=== PATIENT | male | born 1985 | race Caucasian/White ===

== ENCOUNTER 2018-01-29 09:25 | Emergency (ER) | payer BC, OTHER ==
--- NOTE | 2018-01-29 10:15 | ED ---
Lower Extremity - HPI Summary HPI Summary: Patient here with left hip pain today 20 minutes. He noticed this pain started after he was sitting in a vehicle and stood up to get out of the vehicle. He describes pain as sharp and burning. The area over his left greater trochanter was tender to palpation during the episode and still is to a lesser degree. 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 No known fractures or disc issues. He admits his symptoms in his left hip started a few months ago in a similar fashion (pain with standing after sitting for a period of time). He is here today is pain was much more impressive and lasting longer than usual. He has not tried anything for pain prior to arrival - reports no pain at this time and does not want NSAID's, etc. No known h/o hip/leg injury. - History of Current Complaint Chief Complaint: EDHipPelvisInjury Stated Complaint: LT HIP PAIN Time Seen by Provider: 01/29/18 09:42 Hx Obtained From: Patient Pain Intensity: 1 - Allergies/Home Medications Allergies/Adverse Reactions: Allergies Allergy/AdvReac Type Severity Reaction Status Date / Time amoxicillin Allergy Severe Hives Verified 01/29/18 09:31 cephalexin [From Keflex] Allergy Severe Hives Verified 01/29/18 09:31 Penicillins Allergy Severe Hives Verified 01/29/18 09:31 PMH/Surg Hx/FS Hx/Imm Hx Previously Healthy: Yes Endocrine/Hematology History: Denies: Hx Anticoagulant Therapy, Hx Blood Disorders Musculoskeletal History: Reports: Hx Back Problems - "back problems from martial arts over the years" no def injury noted Denies: Hx Arthritis, Hx Bursitis, Hx Orthopedic Injury, Hx Osteoporosis, Hx Tendonitis, Hx of Fracture(s), Hx Joint Replacement Infectious Disease History: No Infectious Disease History: Denies: Traveled Outside the [place] in Last 30 Days - Family History Known Family History: Negative: Diabetes - Social History 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 Alcohol Use: None - 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 Substance Use Type: Reports: Excessive Caffeine - "I drink alot of Red Bull" Hx Tobacco Use: Yes - chewing tobacco - quit 2 years ago Smoking Status (MU): Never Smoked Tobacco Type: Smokeless Tobacco - quit 2 years ago - uses nicorette since Review of Systems Constitutional: Negative Negative: Fever, Chills, Fatigue Eyes: Negative ENT: Negative Cardiovascular: Negative Negative: Chest Pain Respiratory: Negative Negative: Shortness Of Breath, Cough Gastrointestinal: Negative Negative: Abdominal Pain, Vomiting, Diarrhea, Nausea Genitourinary: Negative Negative: burning, dysuria, discharge, frequency, flank pain, hematuria, incontinence, pain, urgency Positive: Arthralgia, Myalgia. Negative: Decreased ROM, Edema Skin: Negative Neurological: Negative Negative: Headache, Weakness, Paresthesia, Numbness Psychological: Normal All Other Systems Reviewed And Are Negative: Yes Physical Exam Triage Information Reviewed: Yes Vital Signs On Initial Exam: Initial Vitals Temp Pulse Resp BP Pulse Ox 97.2 F 68 14 119/60 100 01/29/18 09:26 01/29/18 09:26 01/29/18 09:26 01/29/18 09:26 01/29/18 09:26 Vital Signs Reviewed: Yes Appearance: Positive: Well-Appearing, No Pain Distress, Well-Nourished Skin: Positive: Warm, Skin Color Reflects Adequate Perfusion, Dry - No erythema , no ecchymosis, no lesions over affected area and left hip and lower extremity area Head/Face: Positive: Normal Head/Face Inspection Eyes: Positive: Normal, EOMI ENT: Positive: Hearing grossly normal, Pharynx normal - Mucosa moist Neck: Positive: Supple Respiratory/Lung Sounds: Positive: Clear to Auscultation, Breath Sounds Present Cardiovascular: Positive: Normal, RRR, Pulses are Symmetrical in both Upper and Lower Extremities. Negative: Leg Edema Left, Leg Edema Right Abdomen Description: Positive: No Organomegaly, Guarding - Reports his abdomen is sore from a recent appendectomy workoutno new pain, soreness or tenderness Bowel Sounds: Positive: Present Musculoskeletal: Positive: Strength/ROM Intact, Pain @ - Patient has pain with left hip Abduction lying and external rotation of left hip; tender to palpation over left posterior aspect of left femur within the gluteal and hamstring tissue. Negative: Limited @ Neurological: Positive: Normal, Sensory/Motor Intact, Alert, Oriented to Person Place, Time, CN Intact II-III, Reflexes Intact, Other - No saddle paresthesia Psychiatric: Positive: Normal - Concerned but calm, pleasant and cooperative Diagnostics - Vital Signs Vital Signs Temp Pulse Resp BP Pulse Ox 01/29/18 09:26 97.2 F 68 14 119/60 100 - Laboratory Lab Statement: Any lab studies that have been ordered have been reviewed, and results considered in the medical decision making process. Lower Extremity Course/Dx - Course Course Of Treatment: Lumbar and left hip/pelvis x-rays reviewedper report no acute findings. Some mild degenerative disc disease is identified in the thoracic spinethis does not correlate with patient's symptoms today. Diagnosed with sciatic irritation and advised on supportive care. Advised to follow-up with PCP and return to emergency department if danger signs or symptoms present. - Diagnoses Provider Diagnoses: Sciatica of left side Discharge - Discharge Plan Condition: Stable Disposition: HOME Patient Education Materials: Sciatica (ED) Forms: *Work Release Referrals: No Primary Care Phys,NOPCP [Primary Care Provider] - [facility] [Outside] Additional Instructions: Rest, ice alternating with heat and gentle stretches. He may also try anti-inflammatory oral medication such as ibuprofen, Aleve with food and/or analgesic agents such as Biofreeze, BenGay, etc. Stay hydrated and reduce/avoid diuretics such as caffeine Follow-up with PCP in one week if symptoms persist despite efforts *If you develop return of intractable pain, numbness, tingling, weakness, change in bowel or bladder habits, return to the emergency department
--- NOTE | 2018-01-29 10:35 | RAD ---
HISTORY: Left hip pain COMPARISONS: September 08, 2015 VIEWS: 3, Frontal view of the pelvis with frontal and frog-leg views of the left hip FINDINGS: BONE DENSITY: Normal. BONES: There is no displaced fracture. JOINTS: There is no arthropathy. ALIGNMENT: There is no dislocation. SOFT TISSUES: Unremarkable. OTHER FINDINGS: None. IMPRESSION: NO ACUTE OSSEOUS INJURY. IF SYMPTOMS PERSIST, RECOMMEND REPEAT IMAGING.
--- NOTE | 2018-01-29 10:36 | RAD ---
HISTORY: Left hip pain radiating into hamstring COMPARISONS: None VIEWS: 3 , Frontal, lateral, and coned-down lateral sacral views of the lumbar spine FINDINGS: ALIGNMENT: The alignment is normal. VERTEBRAL BODIES: The vertebral body heights are normal. The interpedicular distances are normal. There is mild anterolateral marginal osteophyte dimension along the lower thoracic spine. JOINTS: The facet joints are normal. INTERVERTEBRAL DISCS: There is mild diffuse loss of intervertebral disc height. SOFT TISSUE: Unremarkable. OTHER: The pelvis is unremarkable. The lung bases are clear. IMPRESSION: MILD DEGENERATIVE DISC DISEASE.
[2018-01-29 11:17] VITALS: BP 123/65
== END 2018-01-29 11:16 | disposition home or self-care (01) ==
LOC: ED 09:25
DX: M54.32 Sciatica, left side (principal); M25.552 Pain in left hip; M51.36 Other intervertebral disc degeneration, lumbar region
CPT/HCPCS: 72100; 99281

== ENCOUNTER 2018-02-24 08:43 | Emergency (ER) | payer BC ==
--- NOTE | 2018-02-24 10:30 | ED ---
Neck Pain - HPI Summary HPI Summary: Patient a 32-year-old male who presents to emergency department for left-sided neck pain 2 days. 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 He does not recall any specific injuries or falls that preceded pain. Pain does not radiate into arms. He denies numbness, tingling or weakness in arms. Pain is worse with movement. Rest mildly improves symptoms. Symptoms are mild in severity. He has no significant past medical history. - History of Current Complaint Chief Complaint: EDNeckComplaint Stated Complaint: NECK PAIN Time Seen by Provider: 02/24/18 08:51 Hx Obtained From: Patient Onset/Duration Of Injury/Symptoms: Days Timing: Constant Onset/Duration: Gradual Onset Severity Initially: Moderate Severity Currently: Severe Pain Intensity: 6 Pain Scale Used: 0-10 Numeric Character: Sharp, Spasmotic, Throbbing Aggravating Factors: Position, Movement Alleviating Factors: Nothing Associated Signs & Symptoms: Negative: Swelling, Redness, Bruising, Fever, Nuchal Rigity, Weakness, Headache, Paresthesia - Risk Factors Meningitis Risk Factors: Negative - Allergies/Home Medications Allergies/Adverse Reactions: Allergies Allergy/AdvReac Type Severity Reaction Status Date / Time amoxicillin Allergy Severe Hives Verified 01/29/18 09:31 cephalexin [From Keflex] Allergy Severe Hives Verified 01/29/18 09:31 Penicillins Allergy Severe Hives Verified 01/29/18 09:31 PMH/Surg Hx/FS Hx/Imm Hx Previously Healthy: Yes Endocrine/Hematology History: Denies: Hx Anticoagulant Therapy, Hx Blood Disorders Musculoskeletal History: Reports: Hx Back Problems - "back problems from martial arts over the years" no def injury noted Denies: Hx Arthritis, Hx Bursitis, Hx Orthopedic Injury, Hx Osteoporosis, Hx Tendonitis Infectious Disease History: No Infectious Disease History: Denies: Traveled Outside the [place] in Last 30 Days - Family History Known Family History: Negative: Diabetes - Social History Occupation: Employed Full-time Lives: With Family Alcohol Use: None Substance Use Type: Reports: Excessive Caffeine Hx Tobacco Use: Yes - chewing tobacco - quit 2 years ago Smoking Status (MU): Never Smoked Tobacco Type: Smokeless Tobacco - quit 2 years ago - uses nicorette since Review of Systems - ROS Summary Review of Systems Summary: Constitutional: No fever, chills. Head/Face: No trauma. Neck: Left sided neck pian MS: No radicular pain in arms Neuro: No change in mental status. No numbness, tingling or weakness. All other systems reviewed and are negative. All Other Systems Reviewed And Are Negative: Yes Physical Exam - Summary Physical Exam Summary: Appearance: Pt. is awake and alert. Pt. lying in bed in NAD. Skin: Warm, dry. Head/Face: No trauma. Normocephalic. Eyes: PERRLA. Neck: Pain with movement. No midline tenderness. Pain and spasming to the left lateral neck and trapezius muscle. ENT: Nose without drainage. Oropharynx patent. MS/Extremity: Moving all 4 extremities. 5/5 strength in bilateral UEs. No neurosensory deficits. Neuro: Awake, alert. Cranial nerves II through XII grossly intact. Pscyh: Normal affect. Triage Information Reviewed: Yes Vital Signs On Initial Exam: Initial Vitals Temp Pulse Resp BP Pulse Ox 97.1 F 56 16 116/67 100 02/24/18 08:45 02/24/18 08:45 02/24/18 08:45 02/24/18 08:45 02/24/18 08:45 Vital Signs Reviewed: Yes Appearance: Positive: Well-Appearing Skin: Positive: Warm, Dry Diagnostics - Vital Signs Vital Signs Temp Pulse Resp BP Pulse Ox 02/24/18 10:01 97.8 F 65 16 113/65 100 02/24/18 08:45 97.1 F 56 16 116/67 100 - Laboratory Result Diagrams: 02/24/18 12:00 02/24/18 12:00 Lab Statement: Any lab studies that have been ordered have been reviewed, and results considered in the medical decision making process. Neck Course/Dx - Course Course Of Treatment: Patient present to the ER for left-sided neck pain after training [facility] yesterday. He does not recall any specific injuries that proceeded pain. He is afebrile with stable vital signs. On exam he has no midline tenderness. His pain seems to be muscular in nature. He has no particular symptoms and has no neurosensory deficits. Suspect muscle spasm. Plan was discussed with patient for muscle relaxants and NSAIDs. Patient expressed to me that he has had numerous injuries in the past and his pain today is worse. He does not feel pain is secondary to musculoskeletal in etiology. Patient was examined by Dr. Priest as well who agrees pain is muscular in nature. Patient is still dissatisfied and wishes for further evaluation. He declined pain medication in the ER. Care is being turned over to Dr. Priest for further evaluation. He has ordered a CTA of the neck for further evaluation. - Diagnoses Provider Diagnoses: Cervical strain, Muscle spasm Discharge - Sign-Out/Discharge Documenting (check all that apply): Discharge - Discharge Plan Condition: Good Disposition: HOME Prescriptions: Cyclobenzaprine TAB* [Flexeril 10 MG TAB*] 10 mg PO TID PRN 3 Days #9 tab PRN Reason: Pain Naproxen TAB* [Naprosyn 250 mg TAB*] 500 mg PO BID 7 Days #14 tab Patient Education Materials: Muscle Spasm (ED), Acute Neck Pain (ED) Forms: *Work Release Referrals: No Primary Care Phys,NOPCP [Primary Care Provider] - Additional Instructions: Schedule a follow up appointment with your PCP Take medication as directed Apply warm compresses Gentle massage Return to ER if symptoms change or worsen - Billing Disposition and Condition Condition: GOOD Disposition: HOME
[2018-02-24] MEDS ORDERED: Ketorolac INJ* 30 MG/ML 1 ML VIAL IV PUSH ONE (11:51)
[2018-02-24] MEDS ORDERED: Lidocaine PATCH 5%* 1 PATCH ONE (11:56)
[2018-02-24] MEDS ORDERED: Lidocaine PATCH 5%* 1 PATCH TRANSDERM SCH (12:00)
[2018-02-24 12:13] LABS: Hematocrit 43 % (42-52); Hemoglobin 14.3 g/dl (14.0-18.0); Mean Corpuscular HGB Conc 33 g/dl (31-36); Mean Corpuscular Hemoglobin 29 pg (27-31); Mean Corpuscular Volume 88 fL (80-94); Mean Platelet Volume 7.6 um3 (7.4-10.4); Platelet Count 244 10^3/ul (150-450); Red Blood Count 4.85 10^6/ul (4.0-5.4); Red Cell Distribution Width 14 % (10.5-15); White Blood Count 4.4 10^3/ul (3.5-10.8)
[2018-02-24 12:30] LABS: EGFR Non-African American 92.5 (>60)
[2018-02-24] MEDS ORDERED: Iohexol 350* (CONTRAST) 500 ML MDV IV ONE (13:08)
[2018-02-24] MEDS ORDERED: diPHENhydraMINE IV* 50 MG in NS 0.9% 50 ML* 50 ML IVPB ONE (13:12)
[2018-02-24] MEDS ORDERED: methylPREDNISolone 125 MG* 2 ML VIAL IV ONE (13:12)
[2018-02-24] MEDS ORDERED: diPHENhydraMINE IV* 50 MG/ML 1 ml VIAL (BENADRYL) ONE (13:13)
[2018-02-24] MEDS ORDERED: methylPREDNISolone 125 MG* 2 ML VIAL ONE (13:13)
--- NOTE | 2018-02-24 13:31 | RAD ---
HISTORY: Left-sided neck pain COMPARISONS: None TECHNIQUE: Multiple contiguous axial CT scans were obtained of the head and neck after the administration of nonionic intravenous contrast timed to the systemic arterial phase of contrast enhancement. Coronal and sagittal multiplanar reformations are submitted for review. Multiple 3-D maximum intensity projection reconstructions are also submitted for review. FINDINGS: CTA NECK: AORTIC ARCH: There is a normal three-vessel branching pattern of the aortic arch. There is no ostial or proximal stenosis of the cephalic great vessels. RIGHT VERTEBRAL ARTERY: The right vertebral artery is patent along its course, without stenosis. LEFT VERTEBRAL ARTERY: The left vertebral artery is patent along its course, without stenosis. DOMINANCE: The left vertebral artery is dominant. RIGHT COMMON CAROTID ARTERY: The right common carotid artery is patent. The right carotid bifurcation occurs at C3-C4 RIGHT INTERNAL CAROTID ARTERY: There is no right internal carotid artery stenosis by NASCET criteria. RIGHT EXTERNAL CAROTID ARTERY: The right external carotid artery is unremarkable. LEFT COMMON CAROTID ARTERY: The left common carotid artery is patent. The left carotid bifurcation occurs at C3-C4 LEFT INTERNAL CAROTID ARTERY: There is no left internal carotid artery stenosis by NASCET criteria. LEFT EXTERNAL CAROTID ARTERY: The left external carotid artery is unremarkable. VENOUS CIRCULATION: The venous system is unremarkable. SALIVARY GLANDS: The parotid glands, submandibular glands, sublingual glands are normal. NASAL CAVITY/NASOPHARYNX: The nasal cavity and nasopharynx are normal. ORAL CAVITY/OROPHARYNX: The oral cavity is obscured by streak artifact from dental amalgam. The visualized oral cavity and oropharynx are unremarkable. LARYNGEAL APPARATUS/HYPOPHARYNX: The laryngeal apparatus and hypopharynx are normal. UPPER AIRWAY/UPPER ESOPHAGUS: The visualized upper airway and esophagus are normal. LUNG APICES: The lung apices are clear. THYROID GLAND: The thyroid gland is normal. LYMPH NODES: There is no lymphadenopathy by size criteria. BONES AND SOFT TISSUES: Mild degenerative changes are noted. CTA HEAD: INTRACRANIAL CIRCULATION: There is no aneurysm, vascular malformation, occlusion, or stenosis of the visualized intracranial circulation. The anterior communicating artery complex is clear. Bilateral posterior communicating arteries are identified. VENOUS CIRCULATION: The venous system is unremarkable. PERFUSION: There is no obvious parenchymal perfusion deficit. HEMORRHAGE/INFARCT: There is no hemorrhage or acute infarct. MASSES/SHIFT: There is no mass or shift. EXTRA-AXIAL SPACES: There are no extra-axial fluid collections. SULCI AND VENTRICLES: The sulci and ventricles are normal in size and position for the patient's stated age. CEREBRUM: There are no focal parenchymal abnormalities. BRAINSTEM: There are no focal parenchymal abnormalities. CEREBELLUM: There are no focal parenchymal abnormalities. PARANASAL SINUSES: The paranasal sinuses are clear. ORBITS: The orbits are unremarkable. BONES AND SOFT TISSUE: No bone or soft tissue abnormalities are noted. OTHER: There is no abnormal enhancement. IMPRESSION: 1. NO INTERNAL CAROTID ARTERY STENOSIS BY NASCET CRITERIA. 2. NO ANEURYSM, VASCULAR MALFORMATION, OCCLUSION, OR STENOSIS OF THE VISUALIZED INTRACRANIAL CIRCULATION. CPT II Codes: 3100F
--- NOTE | 2018-02-24 14:21 | UC ---
Luc Mckeon Stephanie, scribed for Domo Priest MD on 02/24/18 at 0944 . - Progress Note Progress Note: The pt is a 32 y/o M presenting to the ED with c/o neck pain that began last night s/p wresting practice. Symptoms include nausea. Aggravating factors include ambulating. The pain is described as a jolting excruciating pain located on the L posterior side of his neck. The pain is intermittent and lasts 3-5 seconds at a time. He denies tingling/numbness in UE bilaterally, ringing in ears and fever. 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 Re-Evaluation - Re-Evaluation First Eval Re-Evaluation Time: 13:15 Change: Worse - The pt has hives on his face. There is no airway involvement. Course/Dx - Course Course Of Treatment: The pt has no carotid bruit, no Rach syndrome and no weakness. Pain is reproducible with movement. No significant energy, no significant mechanism for fracture. ED physician suspects cervical strain or local neuritis related to overuse. ED physician recommends supportive care. ED physician does not suspect vertebral or carotid pathology. ED physician and KAYLEN Cabrera discussed the musculoskeletal nature of the pt's pain however, the pt is dissatisfied with this explanation and desires a more in-depth workup. ED physician discusses radiation risk with the pt. The pt also expresses concern about the cost of his treatment today. - Diagnoses Provider Diagnoses: Cervical strain, Muscle spasm, Contrast media allergy Discharge - Sign-Out/Discharge Documenting (check all that apply): Discharge - Discharge Plan Condition: Good Disposition: HOME Prescriptions: Cyclobenzaprine TAB* [Flexeril 10 MG TAB*] 10 mg PO TID PRN 3 Days #9 tab PRN Reason: Pain Naproxen TAB* [Naprosyn 250 mg TAB*] 500 mg PO BID 7 Days #14 tab predniSONE TAB* [Deltasone TAB*] 20 mg PO DAILY #3 tab Patient Education Materials: Muscle Spasm (ED), Acute Neck Pain (ED) Forms: *Work Release Referrals: No Primary Care Phys,NOPCP [Primary Care Provider] - Additional Instructions: Schedule a follow up appointment with your PCP Take medication as directed Apply warm compresses Gentle massage Return to ER if symptoms change or worsen - Billing Disposition and Condition Condition: GOOD Disposition: HOME The documentation as recorded by the Luc hanson Stephanie accurately reflects the service I personally performed and the decisions made by me, Domo Priest MD.
[2018-02-24 14:24] VITALS: BP 92/48
[2018-02-24] MEDS ORDERED: Lidocaine Patch REMOVE* 1 NOTE MISC SCH (21:00)
== END 2018-02-24 10:01 | disposition home or self-care (01) ==
LOC: ED 08:43
DX: S16.1XXA Strain of muscle, fascia and tendon at neck level, initial encounter (principal); M62.838 Other muscle spasm; M54.2 Cervicalgia; X58.XXXA Exposure to other specified factors, initial encounter; Y92.9 Unspecified place or not applicable
CPT/HCPCS: 36415; 70496; 70498; 80053; 85027; 85652; 86140; 96374; 99282; A9270-GY; J1200; J1885; J2930; Q9967

== ENCOUNTER 2018-04-15 20:59 | Emergency (ER) | payer BC ==
--- NOTE | 2018-04-15 23:14 | ED ---
Upper Extremity Pain - HPI Summary HPI Summary: hand w/ bruising, pain - was swollen - better today - numb over bruised area - pain w/ wrist mvoemnet - History of Current Complaint Chief Complaint: EDExtremityUpper Stated Complaint: LT HAND INJURY Time Seen by Provider: 04/15/18 21:50 Hx Obtained From: Patient - Allergies/Home Medications Allergies/Adverse Reactions: Allergies Allergy/AdvReac Type Severity Reaction Status Date / Time amoxicillin Allergy Severe Hives Verified 04/15/18 21:06 cephalexin [From Keflex] Allergy Severe Hives Verified 04/15/18 21:06 Penicillins Allergy Severe Hives Verified 04/15/18 21:06 Iodinated Contrast- Oral and Allergy Hives Verified 04/15/18 21:06 IV Dye Home Medications: Home Medications NK [No Home Medications Reported] 04/15/18 [History Confirmed 04/15/18] PMH/Surg Hx/FS Hx/Imm Hx Endocrine/Hematology History: Denies: Hx Anticoagulant Therapy, Hx Blood Disorders, Hx Diabetes History: Denies: Hx Renal Disease Musculoskeletal History: Reports: Hx Back Problems - "back problems from martial arts over the years" no def injury noted Denies: Hx Arthritis, Hx Bursitis, Hx Orthopedic Injury, Hx Osteoporosis, Hx Tendonitis Infectious Disease History: No Infectious Disease History: Denies: Traveled Outside the [place] in Last 30 Days - Family History Known Family History: Negative: Diabetes - Social History Alcohol Use: None Substance Use Type: Reports: Excessive Caffeine Hx Tobacco Use: Yes - chewing tobacco - quit 2 years ago Smoking Status (MU): Never Smoked Tobacco Type: Smokeless Tobacco - quit 2 years ago - uses nicorette since Physical Exam Vital Signs On Initial Exam: Initial Vitals Temp Pulse Resp BP Pulse Ox 98.6 F 63 16 122/84 98 04/15/18 21:00 04/15/18 21:00 04/15/18 21:00 04/15/18 21:00 04/15/18 21:00 Diagnostics - Vital Signs Vital Signs Temp Pulse Resp BP Pulse Ox 04/15/18 21:00 98.6 F 63 16 122/84 98 - Laboratory Lab Statement: Any lab studies that have been ordered have been reviewed, and results considered in the medical decision making process. Discharge - Sign-Out/Discharge Documenting (check all that apply): Discharge/Admit/Transfer - Discharge Plan Condition: Stable Disposition: HOME Patient Education Materials: Contusion in Adults (ED), Hand Sprain (ED) Forms: *Work Release Referrals: No Primary Care Phys,NOPCP [Primary Care Provider] - [facility] [address] [Outside] Additional Instructions: REST, ICE, ELEVATE AND WEAR MIRIAM WRAP FOR COMFORT You may take ibuprofen alternating with acetaminophen as needed for pain Follow-up with PCP if pain persists or worsens. You may need a referral to orthopedics if worse. *If you develop numbness, tingling, weakness, swelling or skin discoloration, remove MIRIAM wrap and elevate arm for 20 minutes. If symptoms persist, return to ED - Billing Disposition and Condition Condition: STABLE Disposition: HOME
[2018-04-15 23:36] VITALS: BP 133/67
--- NOTE | 2018-04-16 08:04 | RAD ---
HISTORY: Punching injury COMPARISONS: None VIEWS: 4, Frontal, lateral, and oblique views of the left hand FINDINGS: BONE DENSITY: Normal. BONES: There is no displaced fracture. JOINTS: There is no arthropathy. ALIGNMENT: There is no dislocation. SOFT TISSUES: Unremarkable. OTHER FINDINGS: None. IMPRESSION: NO ACUTE OSSEOUS INJURY. IF SYMPTOMS PERSIST, RECOMMEND REPEAT IMAGING.
== END 2018-04-15 23:35 | disposition home or self-care (01) ==
LOC: ED 20:59
DX: M79.642 Pain in left hand (principal); Z87.891 Personal history of nicotine dependence; Z88.0 Allergy status to penicillin; Z88.3 Allergy status to other anti-infective agents; Z91.041 Radiographic dye allergy status
CPT/HCPCS: 99282